=== PATIENT | female | born 1945 | race Caucasian/White ===

== ENCOUNTER → 2019-02-14 | Outpatient (CLI) | payer MEDICARE, OTHER ==
[2016-07-07 09:07] VITALS: BP 136/70
[~2019-02-14] MED LIST: DICL75TA PO; GABA300C18 PO; IOHEXOL 180 MG/ML 10 ML VIAL. ONE; LACT1CAP6 PO; LINZESS145 MCG PO; MULT1TAB52 PO; NAPR220C4 PO; SENN8.6T99 PO; SIMV10TA3 PO; VITA100T5 PO; methylPREDNISolone ACETATE 40 MG/ML VIAL. ONE; methylPREDNISolone ACETATE 80 MG/ML VIAL. ONE
--- NOTE | 2019-02-15 03:22 | PAIN ---
DATE OF SERVICE: 02/14/2019 FOLLOWUP NOTE DIAGNOSES: Lumbar radiculopathy with lumbar degenerative disk disease. HISTORY OF PRESENT ILLNESS: The patient is a 74-year-old female who returns for followup status post previous epidural injections in 2013. She did very well with these with about 75-80% improvement. The patient reports the pain is returning now in the low back, into the right lower extremity as it was previously, into the posterior gluteus, posterolateral thigh, lateral anterior thigh, anterior medial thigh, medial lower leg, into the foot. She is starting physical therapy later today. She has had physical therapy in the past, which was done well and reports she is still doing some stretching exercises from that. The patient has had chiropractic treatment as well 5 years ago, trigger point injections and epidural injections, all of which helped significantly. The patient is taking gabapentin and 2 Aleve daily that help some of the pain as well and it does help about 40-50% by her estimation. The patient reports the pain is becoming more constant, radiating down the right leg, aching and dull across the low back as well. The patient did not have any new imaging studies, does have an old MRI scan showing some significant narrowing at the L4-L5 level with a shallow protrusion in the right lateral recess, contacting the descending right L5 nerve root without significant displacement. Again, that was in 2012. The patient reports no new motor or sensory deficits, no bowel or bladder incontinence or other complaints. The patient's medication list was updated, as was her allergy list. PHYSICAL EXAMINATION: VITAL SIGNS: Today, the patient's blood pressure is 113/61, pulse 59, respirations 18, temperature 99.1 degrees Fahrenheit, height is 5 feet 5 inches, weight is 180 pounds. GENERAL: The patient is awake, alert, oriented, appropriate, very pleasant demeanor. HEENT: Head shows normocephalic, atraumatic. The patient wears eye glasses. Extraocular movements are intact and symmetrical. Oral cavity: Mucous membranes moist and pink. Dentition is intact. NECK: Shows anterior throat supple without palpable lymphadenopathy noted. Swallow reflex symmetrical. CHEST: Shows normal on inspection. Breath sounds clear to auscultation bilaterally. HEART: Shows S1, S2 clear. No murmurs auscultated. ABDOMEN: Soft, nontender, nondistended. No palpable organomegaly is noted. No rebound or guarding demonstrated. BACK: Shows spine grossly in the midline. Normal-appearing thoracic kyphosis and lumbar lordotic curvature. Lumbar paraspinous muscle shows symmetrical on inspection; on palpation shows some moderate tenderness diffusely, but only diffusely in the low lumbar distribution, more on the right than the left. The patient has good rotational motion of lumbar spine, both laterally as well as extension and flexion without significant pain reported. EXTREMITIES: Lower extremities show deep tendon reflexes 2+ in the patellar and 1+ tendo calcaneus tendons. Motor exam is strong with 5/5 dorsiflexion, extension, quadriceps and hamstring flexion and equal as well. Peripheral pulses are 1+ posterior tibia. No peripheral edema is noted. The patient is able to stand, stand on her toes without difficulty or loss of balance, walks with a normal-appearing gait, does not appear to favor the right or left lower extremity significantly on ambulation. Options were discussed with the patient. The patient's old chart was reviewed as was her current medication regimen updated. Current review of systems updated today as well. We will proceed with a lumbar epidural steroid injection today with fluoroscopic guidance. Risks were again discussed including, but not limited to bleeding, infection, possibility of epidural hematoma, subsequent neurological compromise, dural puncture, headaches, spinal cord and/or nerve damage, side effects of steroid medication and poor results regarding pain control. The patient understands and wished to proceed. The patient will return to clinic in approximately 2 weeks for followup, was counseled as to return appointment, activity level and side effects to be aware of. DIAGNOSIS: Lumbar radiculopathy with lumbar degenerative disk disease. PROCEDURE: Lumbar epidural steroid injection, translaminar approach at the L4-L5 level using C-arm fluoroscopic guidance under sterile prep and drape using local anesthetic. MEDICATION INJECTED: Total of 120 mg of Depo-Medrol plus 10 mL of preservative-free normal saline and 2 mL of isovue for contrast. CONDITION AT DISCHARGE: Stable. The patient tolerated the procedure well, had no complications. ALCIRA KIM MD DR: SUSAN/madi JOB#: [id number] / [id number]
== END ==
LOC: PNCL 08:34
PROVIDERS: ATTEND Anesthesiology
DX: M51.16 Intervertebral disc disorders with radiculopathy, lumbar region (principal); M54.5 Low back pain; M79.661 Pain in right lower leg
CPT/HCPCS: 62323; J1030; J1040; Q9965

== ENCOUNTER → 2019-03-07 | Outpatient (CLI) | payer MEDICARE, OTHER ==
[2016-07-07 09:07] VITALS: BP 136/70
--- NOTE | 2019-03-07 11:48 | PAIN ---
DATE OF SERVICE: 03/07/2019 PROGRESS NOTE FOR PAIN CLINIC DIAGNOSES: Lumbar radiculopathy with lumbar degenerative disk disease. HISTORY OF PRESENT ILLNESS: The patient is a 74-year-old female who returns for followup status post lumbar epidural steroid injection x 1. The patient reports about 25% improvement overall in the low back and right lower extremity, mainly the pain in her low back on the right side. The patient started physical therapy and has had a few sessions and feels this may be helping to some degree, but reports still some significant pain in the low back, right leg, posterior gluteus, posterior lateral thigh, lateral anterior thigh and medial thigh; described aching and sharp, tight, cramping at times, stabbing and occasionally radiating; becoming more constant with walking, activity, changing positions and also riding in a car for a long period of time. The patient reports the pain is 7 on a scale of 10 at the worst over the past week, 5 on average and 3 at its least and is a 5 today. The patient reports no new motor or sensory deficit. It does not awaken her from sleep at night, much better with sitting or lying down. No new changes. PHYSICAL EXAMINATION: VITAL SIGNS: The patient's blood pressure is 128/61, pulse 58, respirations 18 and temperature is 98.2 degrees Fahrenheit. Height is 5 feet 5 inches, weighs 178 pounds. GENERAL: The patient is awake, alert, oriented and appropriate. She has a very pleasant demeanor. HEENT EXAMINATION: Shows normocephalic, atraumatic. Extraocular movements are intact and symmetrical. The patient wears eye glasses. Oral cavity, mucous membranes are moist and pink. Dentition is intact. NECK: Shows anterior throat supple, without palpable lymphadenopathy noted. Swallow reflex is symmetrical. CHEST: Shows normal with inspection. Breath sounds are clear to auscultation bilaterally. HEART: Shows S1, S2 clear. No murmurs auscultated. ABDOMEN: Soft, nontender and nondistended. No palpable organomegaly is noted. No rebound or guarding demonstrated. BACK: Shows spine grossly in the midline. Normal-appearing thoracic kyphosis and some minor flattening of the lumbar lordotic curvature. Lumbar paraspinous muscle shows symmetrical on inspection. On palpation, it shows moderate tenderness diffusely, but only diffusely, without radiation. EXTREMITIES: Lower extremities show deep tendon reflexes 2+ in the patellar and 1+ tendo calcaneus tendons. Motor exam is strong with 5/5 dorsiflexion, extension, quadriceps and hamstring flexion and symmetrical. Peripheral pulses are 1+ posterior tibia. No peripheral edema is noted bilaterally. Options were discussed with the patient. The patient's old chart was reviewed as was her current medication regimen updated. Current review of systems updated today as well. We will proceed with a second in the series of lumbar epidural steroid injection today with fluoroscopic guidance. Risks were again discussed including, but not limited to bleeding, infection, possibility of epidural hematoma, subsequent neurological compromise, dural puncture, headaches, spinal cord and/or nerve damage, side effects of steroid medication and poor results regarding pain control. The patient understands and wishes to proceed. The patient will return to the clinic in approximately 2 weeks for followup. She was counseled on her return appointment, activity level and side effects to be aware of. DIAGNOSES: Lumbar radiculopathy with lumbar degenerative disk disease. PROCEDURE: Lumbar epidural steroid injection in a translaminar approach at L4-L5 level using C-arm fluoroscopic guidance under sterile prep and drape using local anesthetic. MEDICATION INJECTED: A total of 120 mg Depo-Medrol plus 10 mL of preservative-free normal saline and 2 mL of contrast. CONDITION AT DISCHARGE: Stable. The patient tolerated the procedure well, had no complications. ALCIRA KIM MD DR: SUSAN/madi JOB#: [id number] / [id number]
== END ==
LOC: PNCL 08:57
PROVIDERS: ATTEND Anesthesiology
DX: M51.16 Intervertebral disc disorders with radiculopathy, lumbar region (principal); M54.5 Low back pain
CPT/HCPCS: 62323; J1030; J1040; Q9965

== ENCOUNTER → 2019-05-24 | Outpatient (CLI) | payer MEDICARE, OTHER ==
[2016-07-07 09:07] VITALS: BP 136/70
[~2019-05-24] MED LIST changes: -IOHEXOL 180 MG/ML 10 ML VIAL. ONE; -methylPREDNISolone ACETATE 40 MG/ML VIAL. ONE; -methylPREDNISolone ACETATE 80 MG/ML VIAL. ONE
--- NOTE | 2019-05-24 11:43 | KCIC ---
5 views of the cervical spine without comparison for cervalgia. FINDINGS: There is mild straightening of the normal cervical lordosis with no fracture or acute osseous or alignment abnormality of the cervical spine. Prevertebral soft tissues are grossly unremarkable. Atlantoaxial articulation is intact. Bony neural foramina are patent. IMPRESSION: 1. No acute osseous or alignment abnormality of the cervical spine. Electronically signed by: Christopher Islas MD (05/24/2019 11:39 AM) [facility]
== END | disposition home or self-care (01) ==
LOC: KCIC 08:15
PROVIDERS: ATTEND Family Medicine
DX: M54.2 Cervicalgia (principal)
CPT/HCPCS: 72050

== ENCOUNTER → 2020-12-18 | Outpatient (CLI) | payer MEDICARE, OTHER ==
[2016-07-07 09:07] VITALS: BP 136/70
[~2020-12-18] MED LIST changes: +GABA-585 PO; +IOHEXOL 180 MG/ML 10 ML VIAL. ONE; +MULT-445 PO; -MULT1TAB52 PO; +SIMV10TA15 PO; -SIMV10TA3 PO; +methylPREDNISolone ACETATE 40 MG/ML VIAL. ONE; +methylPREDNISolone ACETATE 80 MG/ML VIAL. ONE
--- NOTE | 2020-12-18 09:56 | PDOC ---
Progress Note - Pain Clinic Date of Service: DOS: DATE: 12/18/20 TIME: 09:53 Diagnosis: Dx: Lumbar radiculopathy with lumbar degenerative disc disease History or Present Illness: HPI: 75-year-old female returns follow-up status post lumbar epidural steroid injections last seen February 2019. Patient did very well after 2 lumbar epidural steroid injection at that time patient reports for several months following the injections the pain has been returning now over the past several months however in the low back and right lower extremity posterior gluteus posterior lateral thigh lateral anterior thigh anteromedial thigh medial lower leg as well worse with walking standing changing positions better with sitting or laying down has begun awaken her from sleep again over the past few months however and then about every 3-4 hour intervals patient reports admission she was doing much better doing work activities household activities distance walking and traveling with greater ease and comfort as well. Patient reports her pain is still i mproved since his initial onset about 2 years ago but it is increasing in radicular pain in the right leg patient rates is a 6 on scale 10 is worse over the past week 5 on average for its least is a 5 today patient scribes pain is aching and dull in the back tightness shooting tingling in the summer and fall in the right leg also radiating right leg on and off in intensity patient reports no new motor or sensory deficit bladder incontinence or other complaints. Physical Exam: VS: Blood pressure 118/62 pulse 60 respirations 16 temperature 98.2 F inches weight is 179 pound PE: PHYSICAL EXAMINATION: GENERAL: The patient is awake, alert, oriented, appropriate, very pleasant demeanor HEENT: Shows normocephalic, atraumatic. Extraocular movements are intact and symmetrical. Oral cavity: Mucous membranes moist and pink. Dentition is intact. NECK: Shows anterior throat supple without palpable lymphadenopathy noted. Swallow reflex symmetrical. CHEST: Shows normal on inspection. Breath sounds are clear bilaterally, no rales rhonchi wheezes auscultated. HEART: Shows S1, S2 clear. No murmurs auscultated. ABDOMEN: Soft, nontender, nondistended, obese. No palpable organomegaly is noted. No rebound or guarding demonstrated. BACK: Shows spine grossly in the midline. Normal-appearing cervical lordotic curvature. There is slightly increased thoracic kyphosis, some minor flattening of the lumbar lordotic curvature. Lumbar paraspinous muscles show symmetrical on inspection, on palpation shows some moderate tenderness diffusely throughout the upper, middle and lower distribution of the paraspinous muscles without specific trigger points, without radiation of pain. The patient has good rotational motion of the lumbar spine, both laterally as well as extension and flexion without significant difficulty. No tenderness over the spinous process es, sacrum or sacroiliac regions. EXTREMITIES: Lower extremities show deep tendon reflexes 2+ in the patellar and tendo calcaneus tendons. Motor exam is 5 on a scale of 5 with right dorsiflexion, extension, quadriceps and hamstring flexion and 5/5 on the left. Peripheral pulses are 1+ posterior tibial. No peripheral edema is noted bilaterally. Lower extremities are warm and dry to touch, equal in color and appearance. SKIN: Shows warm and dry, good turgor. No edema. No sores, rashes or bruising throughout. Procedure: Procedure: Options were discussed with the patient. Patient chart reviews her current medication regimen updated current review of systems updated today as well. We will proceed with a lumbar epidural steroid traction stable fluoroscopic guidance. Risks were discussed including but not limited to: Bleeding, infection, possibility of epidural hematoma and subsequent neurological compromise, dural puncture, headaches, spinal cord and/or nerve damage, side e ffects of steroid medication, and poor results regarding pain control. Patient understands and wished to proceed. Return to clinic in approximate 2 weeks for follow-up, return appointment activity level and side effects to be aware of. Medication Injected: Med Injected: Procedure is lumbar epidural steroid injection under local anesthetic using st erile prep and drape at the L4-5 level using C-arm fluoroscopic guidance in both AP and lateral views medications injected is 120 mg Depo-Medrol + 10 mL preservative-free normal saline and 2 mL contrast- condition at discharge is stable patient tolerated procedure well had no complications. Condition at Discharge: Condition at Discharge: Condition at discharge stable, patient alert procedure well and had no complications. ALCIRA KIM MD Dec 18, 2020 09:56
--- NOTE | 2020-12-18 09:56 | PDOC4 ---
PROCEDURE Procedure Patient consented for lumbar epidural steroid injection. Risks were discussed including but not limited to: Bleeding, infection, possibility of epidural hematoma and subsequent neurological compromise, dural puncture, headaches, spinal cord and/or nerve damage, side effects of steroid medication, and poor results regarding pain control. Patient understands and wished to proceed. Procedure is lumbar epidural steroid injection under local anesthetic using sterile prep and drape at the L4-5 level using C-arm fluoroscopic guidance in both AP and lateral views medications injected is 120 mg Depo-Medrol + 10 mL preservative-free normal saline and 2 mL contrast- condition at discharge is stable patient tolerated procedure well had no complications. ALCIRA KIM MD Dec 18, 2020 09:56
== END | disposition home or self-care (01) ==
LOC: PNCL 08:55
PROVIDERS: ATTEND Anesthesiology
DX: M51.16 Intervertebral disc disorders with radiculopathy, lumbar region (principal); E78.00 Pure hypercholesterolemia, unspecified; Z79.899 Other long term (current) drug therapy; Z91.040 Latex allergy status; Z98.890 Other specified postprocedural states
CPT/HCPCS: 62323; J1030; J1040; Q9965